=== PATIENT | male | born 1965 | race Caucasian/White ===

== ENCOUNTER 2021-12-15 09:54 | Emergency (ER) | payer MEDICARE ==
[2021-12-15] MEDS ORDERED: Tetracaine 0.5% PF 4 ML BOT ONE (10:09)
[2021-12-15] MEDS ORDERED: Fluorescein Opthalmic Strip ONE (10:21)
== END 2021-12-15 10:39 | disposition home or self-care (01) ==
LOC: BURERS 09:54
DX: S05.02XA Injury of conjunctiva and corneal abrasion without foreign body, left eye, initial encounter (principal); X58.XXXA Exposure to other specified factors, initial encounter
CPT/HCPCS: 99283

== ENCOUNTER 2025-04-05 08:38 | Emergency (ER) | payer MEDICARE ==
[2025-04-05] MEDS ORDERED: Ketorolac Tromethamine 30 MG (1 mL) VIAL ONE (09:49)
== END 2025-04-05 09:53 | disposition home or self-care (01) ==
LOC: BURERS 08:38
DX: S39.012A Strain of muscle, fascia and tendon of lower back, initial encounter (principal); X50.0XXA Overexertion from strenuous movement or load, initial encounter
CPT/HCPCS: 96372; 99283; J1885